=== PATIENT | male | born 1970 | race Caucasian/White ===

== ENCOUNTER → 2016-11-06 | Outpatient (CLI) | payer BC | LOC: COL.CARD 14:26 | DX: R00.2 Palpitations (principal); R00.0 Tachycardia, unspecified ==

== ENCOUNTER → 2016-11-19 | Outpatient (CLI) | payer BC | LOC: COL.CARD 07:30 | DX: R00.2 Palpitations (principal); R00.0 Tachycardia, unspecified ==

== ENCOUNTER → 2017-03-18 | Outpatient (CLI) | payer BC | LOC: COL.VAS 12:23 | DX: I08.8 Other rheumatic multiple valve diseases (principal); G47.33 Obstructive sleep apnea (adult) (pediatric) ==

== ENCOUNTER → 2021-05-07 | Outpatient (CLI) | payer BC | LOC: DIA.ED 08:25 | DX: E11.9 Type 2 diabetes mellitus without complications (principal) | CPT/HCPCS: G0108 ==

== ENCOUNTER → 2021-06-30 | Outpatient (CLI) | payer BC | LOC: DIA.ED 06-04 10:21 | DX: E11.9 Type 2 diabetes mellitus without complications (principal) | CPT/HCPCS: G0108 ==